=== PATIENT | female | born 1960 | race Caucasian/White ===

== ENCOUNTER 2017-02-23 05:09 | Emergency (ER) | payer OTHER ==
[2017-02-23] MEDS ORDERED: NORMAL SALINE 1,000 ML IV ONE ×2 (05:16→07:06)
[2017-02-23] MEDS ORDERED: MORPHINE SULFATE 4 MG/ML SYRG IV ONE ×2 (05:18→07:35)
[2017-02-23] MEDS ORDERED: MORPHINE SULFATE 4 MG/ML SYRG ONE ×2 (05:23→07:37)
[2017-02-23 05:54] LABS: Hematocrit 36.8 % (37.0-47.0); Hemoglobin 12.3 gm/dL (12.5-16.0); Mean Cell Volume 86.8 fl (78-100); Mean Corpuscular Hgb Conc 33.4 g/dl (32-36); Mean Platelet Volume 10.4 fl (6.0-9.5); Platelet Count 272 K/mm3 (150-450); Red Blood Count 4.24 M/mm3 (4.2-5.4); Red Cell Distribution Width 14.5 % (11.5-14.0); White Blood Count 23.7 K/mm3 (4.0-10.5)
[2017-02-23 05:59] LABS: Total Cells Counted 100
[2017-02-23 06:03] LABS: Urine Bilirubin Negative (NEGATIVE); Urine Ketone Negative (NEGATIVE); Urine Nitrite Negative (NEGATIVE); Urine Protein Negative (NEGATIVE); Urine Urobilinogen Normal (NORMAL); Urine pH 5.5 pH (5.0-7.0)
--- NOTE | 2017-02-23 06:03 | ERNOTE ---
<Belkis Smith - Last Filed: 02/23/17 05:40> Abdominal HPI - General Chief Complaint: Abdominal Pain Time Seen by Provider: 02/23/17 05:14 Source: patient, RN notes reviewed, EMS notes reviewed Exam Limitations: no limitations - Immun/Allergies/Home Medications Immunizatons: IMMUNIZATION HX Immunizations Up to Date No Allergies/Adverse Reactions: Allergies No Known Drug Allergies Allergy (Verified 02/23/17 05:18) Home Medications: HOME MEDICATIONS Calcium + D3 ER Tablet 07/08/14 [Last Taken Unknown] Cyclobenzaprine HCl 07/08/14 [Last Taken Unknown] Gabapentin 07/08/14 [Last Taken Unknown] Hydrocodon-Acetaminoph 2.5-325 07/08/14 [Last Taken Unknown] Multi Vitamin Daily 07/08/14 [Last Taken Unknown] Senokot 07/08/14 [Last Taken Unknown] Vitamin C 07/08/14 [Last Taken Unknown] - History of Present Illness Narrative: Patient just released from [facility] yesterday after having back surgery at that facility. She reports having abdominal pain yesterday, which got better for a little while, then worsened during the night. She has been taking her hydrocodone, not eating too much and has not drank much at all. She does have a fever. Her last bowel movement was prior to leaving the hospital. Timing: constant, getting worse Quality: severe, cramping Activities at Onset: rest Modifying Factors - (Improves): Present: analgesics Modifying Factors - (Worsens): Present: coughing, eating Associated Symptoms: Present: back pain, nausea, loss of appetite, weakness Prior Abdominal Problems: Present: none Prior Treatment: Present: recently seen, treated by physician, recently hospitalized Review of Systems - Review of Systems Constitutional: Present: fever. Absent: chills EYE: Present: no symptoms reported ENT: Present: no symptoms reported Respiratory: Present: shortness of breath - secondary to pain Cardiology: Absent: chest pain, palpitations Gastrointestinal/Abdominal: Present: abdominal pain, eating less, drinking less. Absent: nausea, vomiting, diarrhea Genitourinary: Present: no symptoms reported Musculoskeletal: Present: back pain, muscle pain Skin: Present: no symptoms reported Neurological: Present: anxiety Endocrine: Present: no symptoms reported Hematologic/Lymphatic: Present: no symptoms reported Psych: Present: anxiety - Patient's Past Medical History Patient History - Medical: Chronic Pain, Kidney stone Patient History - Cardiac/Respiratory: Asthma, Hyperlipidemia Patient History - Cancer: No Hx of Cancer Patient History - Surgical Procedures: Back Surgery, Cholecystectomy, D & C - Social History Living Situations: home Psych History: No pertinent hx Smoking Status: Current every day smoker Patient requests Smoking Cessation Consult: No Initiate information on Smoking Cessation: No Alcohol Use: none Drug Use: none - Immunizations Immunizations Up to Date: No Physical Exam - Physical Exam General Appearance: Present: wd/wn, moderate distress, anxious, obese Head Exam: Present: normal inspection, no evidence of injury Eye Exam: Normal inspection: bilateral, PERRL: bilateral, EOMI: bilateral Ears, Nose, Throat: Present: normal ENT inspection Neck: Present: normal inspection, nontender Respiratory: Present: no respiratory distress, normal breath sounds, no accessory muscle use Cardiovascular/Chest: Present: regular rate, rhythm, no murmur, normal peripheral pulses Gastrointestinal/Abdominal: Present: normal bowel sounds, nondistended, soft, tenderness Back Exam: Present: decreased range of motion Extremity Exam: Present: normal inspection, normal range of motion Neurological Exam: Present: alert, oriented Skin Exam: Present: normal color, warm/dry ED Progress - Vital Signs Vital Signs: Vital Signs 02/23/17 05:11 Temperature 38.2 C H Pulse Rate 97 Respiratory 20 Rate Blood Pressure 139/79 O2 Sat by Pulse 96 Oximetry - Progress/Reassessment Chief Complaint: Abdominal Pain Departure - Departure Clinical Impression: Diverticulitis Disposition: Other health care facility Condition: Fair Instructions: Diverticulitis, [id number] Additional Instructions: to be tranferred to [facility] accepted by dr mancilla Referrals: Debi Henry APN [Primary Care Provider] - <Calvin Lr - Last Filed: 02/23/17 12:19> Abdominal HPI - Narrative Date of Service: 02/23/17 - Immun/Allergies/Home Medications Immunizatons: IMMUNIZATION HX Immunizations Up to Date No ED Progress - Results and Orders Patient's Lab Results:: I have reviewed the patient's lab results. - Vital Signs Patient's Vital Signs:: I have reviewed the patient's vital signs. - ct of abdomenn reveals diverticulitis with perforation Vital Signs: Vital Signs 02/23/17 02/23/17 02/23/17 05:11 05:43 06:19 Temperature 38.2 C H 37.5 C Pulse Rate 97 92 96 Respiratory 20 18 18 Rate Blood Pressure 139/79 111/54 O2 Sat by Pulse 96 96 96 Oximetry 02/23/17 02/23/17 02/23/17 07:01 07:33 08:11 Temperature 37.0 C 36.9 C Pulse Rate 103 H 90 104 H Respiratory 15 16 15 Rate Blood Pressure 125/52 142/72 135/68 O2 Sat by Pulse 94 95 94 Oximetry 02/23/17 02/23/17 02/23/17 08:36 09:20 09:53 Temperature 36.1 C L 35.7 C L Pulse Rate 101 H 93 91 Respiratory 15 16 14 Rate Blood Pressure 139/69 129/55 120/59 O2 Sat by Pulse 93 95 95 Oximetry 02/23/17 02/23/17 02/23/17 10:19 11:12 11:35 Temperature 36.0 C L Pulse Rate 82 86 Respiratory 16 16 15 Rate Blood Pressure 107/60 112/54 102/50 O2 Sat by Pulse 91 Oximetry 02/23/17 12:11 Temperature Pulse Rate 86 Respiratory 16 Rate Blood Pressure 99/47 O2 Sat by Pulse 92 Oximetry Plan - Plan Plan: tranfer to [facility] per patient request
[2017-02-23 06:08] LABS: Albumin * 2.9 gm/dl (3.4-5.0); Anion Gap 15.9 mmol/L (6.8-13.8); BUN/Creatinine Ratio 24.7 (9.0-21.6); Bilirubin, Total 0.4 mg/dL (0.0-1.1); Ca. Corrected For Albumin 8.5 mg/dL (8.4-10.2); Calcium * 7.9 mg/dL (7.9-10.9); Carbon Dioxide 23.8 mmol/L (24-32.6); Potassium 3.7 mmol/L (3.4-4.6); Total Protein 6.4 gm/dL (6.2-8.2)
[2017-02-23 06:18] LABS: Urine Appearance Clear; Urine Blood 5 /ul (NEGATIVE); Urine Color Yellow
[2017-02-23 06:19] LABS: Urine Bacteria TRACE; Urine RBC None Seen /hpf (0-5); Urine WBC 0-5 /hpf (0-5)
[2017-02-23 06:33] LABS: Neutrophil 88 % (42-75)
[2017-02-23 06:35] LABS: Lymphocyte 10 % (20-51); Monocyte 2 % (0-9); Neutrophil # 20.9 K/mm3 (1.3-6.0); Platelet Estimate Normal (NORMAL)
[2017-02-23 06:36] LABS: RBC Morphology Normal (NORMAL)
[2017-02-23] MEDS ORDERED: ONDANSETRON HCL/PF 2 MG/ML VIAL IV ONE (07:36)
[2017-02-23] MEDS ORDERED: ONDANSETRON HCL/PF 2 MG/ML VIAL ONE (07:37)
[2017-02-23] MEDS ORDERED: ACETAMINOPHEN 325 MG TABLET PO ONE (08:03)
[2017-02-23] MEDS ORDERED: ACETAMINOPHEN 325 MG TABLET ONE (08:07)
[2017-02-23] MEDS ORDERED: metroNIDAZOLE/SODIUM CHLORIDE 500 MG/100 ML BAG IV ONE (11:52)
[2017-02-23] MEDS ORDERED: CIPROFLOXACIN IN 5 % DEXTROSE 400 MG/200 ML BAG IV SCH (12:00)
[2017-02-23 12:33] VITALS: BP 117/60
== END 2017-02-23 13:00 | disposition short-term general hospital (02) ==
LOC: ER 05:09
DX: Z87.442 Personal history of urinary calculi (principal); F17.200 Nicotine dependence, unspecified, uncomplicated
CPT/HCPCS: 36415; 74020; 74177; 80053; 81001; 83605; 85007; 85025; 87040; 87086; 96365; 96375; 99285; J2405